=== PATIENT | female | born 1995 | race Caucasian/White ===

== ENCOUNTER 2018-06-06 10:52 | Emergency (ER) | payer OTHER ==
[2018-06-06 11:04] VITALS: BMI 32.9
[2018-06-06 11:20] LABS: HCG,QUALITATIVE URINE Positive
[2018-06-06 11:25] LABS: URINE APPEARANCE CLOUDY; URINE BILIRUBIN NEGATIVE (<2.0 mg/dL); URINE COLOR AMBER; URINE GLUCOSE (UA) NEGATIVE (NEGATIVE); URINE KETONE NEGATIVE (NEGATIVE); URINE LEUK ESTERASE NEGATIVE (NEGATIVE); URINE NITRITE NEGATIVE (NEGATIVE); URINE PROTEIN NEGATIVE (NEGATIVE); URINE UROBILINOGEN NEGATIVE mg/dL (0.2-1.0)
--- NOTE | 2018-06-06 11:43 | PDOC ---
History of Present Illness - General Chief Complaint: Pain, Acute Stated Complaint: 12 WKS VOMITING Time Seen by Provider: 06/06/18 10:56 History Source: Patient - History of Present Illness Initial Comments: 06/06/18 11:35 22F ([id number]) w/ no significant pmhx presents with a 3 day history of nausea and vomiting. Pt reports she has had 5-6 episodes of non-bloody, non-bilious vomiting since Sunday and is unable tolerate anything PO since then. She also admits to abdominal pain and diarrhea. Pt states she recently started taking vitamins on Sunday. She also follows up regularly with her OBGYN, last u/s done this past Sunday which was normal. Of note, she was seen at [facility] ED for vaginal bleeding after which she was found to have UTI and was given Macrobid. Pt is still currently taking the antibiotic. PMHx: 1 molar , 1 PSHx: Cyst removal on chest FHx: Mother- DM, HTN; Maternal grandfather- DM, HTN Social: Denies tobacco, alcohol, rec drug use; Works as a weight reduction specialist; Denies recent travel Past History - Past Medical History Allergies/Adverse Reactions: Allergies Allergy/AdvReac Type Severity Reaction Status Date / Time No Known Allergies Allergy Verified 06/06/18 11:11 Home Medications: Ambulatory Orders Acetaminophen [Acetaminophen ER] 650 mg PO Q6H #20 tablet.er 06/06/18 Metoclopramide HCl [Reglan] 10 mg PO Q4H PRN #20 tablet 06/06/18 Nitrofurantoin Macrocrystal [Nitrofurantoin] 100 mg PO BID 06/06/18 Pnv72/Iron,Gluc/Folic/Dss/Dha [Citranatal 90 Dha Combo Pack] 1 each PO DAILY 08/23 - Suicide/Smoking/Psychosocial Hx Smoking History: Never smoked Have you smoked in the past 12 months: No Information on smoking cessation initiated: No Hx Alcohol Use: No Drug/Substance Use Hx: No Review of Systems - Review of Systems Able to Perform ROS?: Yes Is the patient limited Kyrgyz proficient: No Constitutional: No: Chills, Fever, Weakness HEENTM: No: Recent change in vision Respiratory: No: Shortness of Breath Cardiac (ROS): No: Chest Pain ABD/GI: Yes: See HPI : Yes: See HPI Musculoskeletal: Yes: Back Pain Neurological: Yes: Headache. No: Dizziness *Physical Exam - Vital Signs Last Vital Signs Temp Pulse Resp BP Pulse Ox 97.6 F 80 18 116/73 100 06/06/18 10:58 06/06/18 10:58 06/06/18 10:58 06/06/18 10:58 06/06/18 10:58 - Physical Exam General Appearance: Yes: Appropriately Dressed HEENT: positive: EOMI, MICHAEL Neck: positive: Supple Respiratory/Chest: positive: Lungs Clear, Normal Breath Sounds Cardiovascular: positive: Regular Rhythm, Regular Rate, S1, S2 Vascular Pulses: Dorsalis-Pedis (R): 2+, Doralis-Pedis (L): 2+ Gastrointestinal/Abdominal: positive: Normal Bowel Sounds, Tender Extremity: positive: Normal Range of Motion Neurologic: positive: fermentation engineer II-XII NML intact, Fully Oriented, Alert, Motor Strength 5/5 ED Treatment Course - LABORATORY CBC & Chemistry Diagram: 06/06/18 11:30 06/06/18 11:30 - ADDITIONAL ORDERS Additional order review: Laboratory Results 06/06/18 11:13 Urine Color Nikia Urine Appearance Cloudy Urine pH 7.0 Ur Specific [place] 1.017 Urine Protein Negative Urine Glucose (UA) Negative Urine Ketones Negative Urine Blood Negative Urine Nitrite Negative Urine Bilirubin Negative Urine Urobilinogen Negative Ur Leukocyte Esterase Negative Urine HCG, Qual Positive Medical Decision Making - Medical Decision Making 06/06/18 12:09 Nausea/vomiting; likely 2/2 hyperemesis gravidarum -Pt currently 12 weeks ; will obtain CBC/CMP, b-HCG quant, u/a, urine cx -Will give Reglan 10 mg IVPB, Tylenol IV 1g IVPB, NS 1000mL IV bolus -Will also obtain u/s 06/06/18 13:09 - U/S showed single live IUP w/ estimated sonographic gestational age of 12 weeks and 6 days. heart activity documented. Deformity of the anterior myometrial wall likely due to a contraction. 06/06/18 13:37 -CBC/CMP wnl. Tolerating food now. Gave prescription for patient to take Tylenol for pain and Reglan for nausea. Advised pt to follow up with PCP and OBGYN. OK to d/c home. *DC/Admit/Observation/Transfer Diagnosis at time of Disposition: Nausea and vomiting - Discharge Dispostion Disposition: HOME Condition at time of disposition: Good Decision to Admit order: No - Prescriptions Prescriptions: Acetaminophen [Acetaminophen ER] 650 mg PO Q6H #20 tablet.er Metoclopramide HCl [Reglan] 10 mg PO Q4H PRN #20 tablet PRN Reason: Nausea And/Or Vomiting - Referrals Referrals: Boom Ramires MD [Primary Care Provider] - Karen Lopez DO [Staff Physician] - - Patient Instructions Additional Instructions: You were seen in the ED for complaints of nausea and vomiting. In the ED, your lab results were normal. A ultrasound was done that was normal. There is no acute need for hospitalization at this time. You are being discharged home. Please follow up with your OBGYN within 1 week. Please follow up with your primary care physician within 1 week. You are being given the following prescriptions: Please take Reglan 10 mg every 4 hours by mouth as needed for nausea. Please take Tylenol 650 mg every 6 hours by mouth as needed for pain. If you experience persistent nausea/vomiting, worsening abdominal pain, chest pain or shortness of breath, please proceed to your nearest emergency room immediately. - Post Discharge Activity Forms/Work/School Notes: Back to Work
[2018-06-06] MEDS ORDERED: METOCLOPRAMIDE HCL INJECTION 10 MG/2 ML VIAL ONE (11:45)
[2018-06-06] MEDS ORDERED: ACETAMINOPHEN INJECTION 100 ML IVPB ONE (11:46)
[2018-06-06] MEDS: ACETAMINOPHEN 1000 MG/100 ML VIAL (NON FORMULARY) IVPB ONE ×2 (11:47→12:24)
[2018-06-06] MEDS: METOCLOPRAMIDE HCL INJECTION 10 MG/2 ML VIAL IVPB ONE ×2 (11:47→12:24)
[2018-06-06] MEDS: SODIUM CHLORIDE 1,000 ML IV STA ×2 (11:47→12:24)
--- NOTE | 2018-06-06 11:48 | PDOC ---
Attending Attestation - HPI HPI: 06/06/18 12:06 The patient is a 22-year-old female , with a past medical history of 1 molar , 12 weeks , who presents to the ED with 3 days of nausea and vomiting. The patient reports having 5-6 episodes of nonbloody, nonbilious vomiting since Sunday 06/03. She developed generalized abdominal pain from the vomiting and has not been able to tolerate any solids or liquids. She also reports having loose stools. She denies any vaginal discharge or vaginal bleeding. The patient denies chest pain, shortness of breath, headache and dizziness. Denies fever, chills, and constipation. Denies dysuria, frequency, urgency and hematuria. Allergies: NKA Past Social History: None reported. Past Surgical History: None reported. PCP: Dr. Ramires - Physicial Exam PE: 06/06/18 12:06 GENERAL: Awake, alert, and fully oriented, in no acute distress HEAD: No signs of trauma EYES: PERRLA, EOMI, sclera anicteric, conjunctiva clear ENT: (+)Dry mucous membranes. Auricles normal inspection, hearing grossly normal , nares patent. NECK: Normal ROM, supple, JVD, or masses LUNGS: Breath sounds equal, clear to auscultation bilaterally. No wheezes, and no crackles HEART: Regular rate and rhythm, normal S1 and S2, no murmurs, rubs or gallops ABDOMEN: (+)Reports subjective abdominal tenderness but has no focal tenderness. Soft. No guarding, no rebound. No masses EXTREMITIES: Normal range of motion, no edema. No clubbing or cyanosis. No cords, erythema, or tenderness NEUROLOGICAL: Cranial nerves II through XII grossly intact. Normal speech, normal gait SKIN: Warm, Dry, normal turgor, no rashes or lesions noted. <Bettina Osborne - Last Filed: 06/06/18 12:06> - Resident Resident Name: Sandhya Laboy - ED Attending Attestation I have performed the following: I have examined & evaluated the patient, The case was reviewed & discussed with the resident, I agree w/resident's findings & plan, Exceptions are as noted - Medical Decision Making 06/06/18 11:44 A portion of this note was documented by scribe services under my direction. I have reviewed the details of the note, within reason, and agree with the documentation with the following case summary and management plan written by me. Patient treated in the ED. Nursing notes are reviewed and incorporated into the medical decision-making. Vital signs reviewed. Peripheral IV access obtained by the nurse, laboratory studies are drawn and sent, reviewed and interpreted by myself. Vital Signs Temp Pulse Resp BP Pulse Ox 97.6 F 80 18 116/73 100 06/06/18 10:58 06/06/18 10:58 06/06/18 10:58 06/06/18 10:58 06/06/18 10:58 22-year-old female patient , prior history of molar , approximately 12 weeks presents with nausea and vomiting for 3 days. Patient reported with her previous pregnancies that she was nauseous and vomiting as well. Since 3 days ago, patient has vomited multiple times with decreased appetite. Did report some mild loose stools but denies sick contacts or recent travels. No fevers or chills. Reported from the vomiting, she developed soreness around her abdomen that generalized. Denies vaginal bleeding. Patient was evaluated for first trimester vaginal bleeding 3 weeks ago where she was evaluated and treated. She does have a that confirms her with her OB, Dr. Lopez. I suspect the patient has hyperemesis gravidarum. We'll check labs including a urinalysis. The patient has no abdominal tenderness on my exam and I suspect that her abdominal wall is uncomfortable from vomiting. We'll obtain a [place] shunt to evaluate for the . We'll give labs and give IV fluids and antiemetics and reassess. If the patient's symptoms are better, the patient can be discharged home with Reglan. 06/06/18 13:21 Ultrasound demonstrated single live intrauterine with gestational age of 12 weeks 6 days with heart at 160 bpm. CBC, BMP 06/06/18 11:30 Urine Test Results Urine Color Nikia 06/06/18 11:13 Urine Appearance Cloudy 06/06/18 11:13 Urine pH 7.0 (5.0-8.0) 06/06/18 11:13 Ur Specific [place] 1.017 (1.010-1.035) 06/06/18 11:13 Urine Protein Negative (NEGATIVE) 06/06/18 11:13 Urine Glucose (UA) Negative (NEGATIVE) 06/06/18 11:13 Urine Ketones Negative (NEGATIVE) 06/06/18 11:13 Urine Blood Negative (NEGATIVE) 06/06/18 11:13 Urine Nitrite Negative (NEGATIVE) 06/06/18 11:13 Urine Bilirubin Negative (<2.0 mg/dL) 06/06/18 11:13 Ur Leukocyte Esterase Negative (NEGATIVE) 06/06/18 11:13 UA negative. If chemistries are unremarkble, and the patient feels better, will discharge her with reglan and have her follow up with assistant merchandiser. <Song Diaz - Last Filed: 06/06/18 13:22>
[2018-06-06 12:42] LABS: HEMATOCRIT 38.3 % (32.4-45.2); HEMOGLOBIN 12.8 GM/dL (10.7-15.3); MCH 30.2 pg (25.7-33.7); MCHC 33.5 g/dl (32.0-36.0); MEAN CELL VOLUME 90.1 fl (80-96); MEAN PLT VOLUME 7.6 fl (7.5-11.1); PLATELET COUNT 301 K/MM3 (134-434); RBC 4.25 M/mm3 (3.60-5.2); RDW 13.2 % (11.6-15.6); WHITE BLOOD COUNT 9.6 K/mm3 (4.0-10.0)
[2018-06-06 13:23] LABS: ALBUMIN 3.5 g/dl (3.4-5.0); ALK PHOS 49 U/L (45-117); ANION GAP 10 MMOL/L (8-16); BILIRUBIN,TOTAL 0.3 mg/dL (0.2-1); BLOOD UREA NITROGEN 6 mg/dL (7-18); CALCIUM 8.8 mg/dL (8.5-10.1); CHLORIDE 105 mmol/L (98-107); CO2 23 mmol/L (21-32); CREATININE 0.4 mg/dL (0.55-1.3); GLUCOSE,RANDOM 79 mg/dL (74-106); MAGNESIUM 2.2 mg/dL (1.8-2.4); PHOSPHOROUS 4.3 mg/dL (2.5-4.9); POTASSIUM 4.1 mmol/L (3.5-5.1); SGOT/AST 17 U/L (15-37); SGPT/ALT 32 U/L (13-61); SODIUM 137 mmol/L (136-145)
[2018-06-06 13:58] VITALS: BP 111/67; PULSE 74; TEMP 97.9
== END 2018-06-06 13:55 | disposition home or self-care (01) ==
LOC: JER 10:52
PROC: 3E0337Z Introduction of Electrolytic and Water Balance Substance into Peripheral Vein, Percutaneous Approach (ICD-10-PCS; principal; 2018-06-06)
PROC: 3E033NZ Introduction of Analgesics, Hypnotics, Sedatives into Peripheral Vein, Percutaneous Approach (ICD-10-PCS; 2018-06-06)
PROC: 3E033GC Introduction of Other Therapeutic Substance into Peripheral Vein, Percutaneous Approach (ICD-10-PCS; 2018-06-06)
DX: O26.891 Other specified pregnancy related conditions, first trimester (principal); O21.0 Mild hyperemesis gravidarum; Z3A.12 12 weeks gestation of pregnancy
CPT/HCPCS: 36415; 76801-TC; 80053; 81003; 83735; 84100; 84702; 84703; 85027; 87086; 99283-25; J0131; J7030

== ENCOUNTER 2018-09-02 21:32 | Emergency (ER) | payer OTHER ==
[2018-09-02 21:38] VITALS: BMI 37.5
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
[2018-09-02 22:24] LABS: URINE APPEARANCE SLCLOUDY; URINE BILIRUBIN NEGATIVE (<2.0 mg/dL); URINE COLOR YELLOW; URINE GLUCOSE (UA) NEGATIVE (NEGATIVE); URINE KETONE NEGATIVE (NEGATIVE); URINE LEUK ESTERASE NEGATIVE (NEGATIVE); URINE NITRITE NEGATIVE (NEGATIVE); URINE PROTEIN NEGATIVE (NEGATIVE); URINE UROBILINOGEN NEGATIVE mg/dL (0.2-1.0)
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
[2018-09-03] MEDS ORDERED: DEXTROSE 5%-LACTATED RINGERS 1,000 ML IV ONE
[2018-09-03 00:33] VITALS: BP 113/60; PULSE 84; TEMP 97.8
== END 2018-09-03 03:05 | disposition home or self-care (01) ==
LOC: JER 21:32
PROC: 3E0337Z Introduction of Electrolytic and Water Balance Substance into Peripheral Vein, Percutaneous Approach (ICD-10-PCS; principal; 2018-09-02)
DX: O26.892 Other specified pregnancy related conditions, second trimester (principal); R10.30 Lower abdominal pain, unspecified; M54.5 Low back pain; Z3A.25 25 weeks gestation of pregnancy; V43.52XA Car driver injured in collision with other type car in traffic accident, initial encounter; Y92.488 Other paved roadways as the place of occurrence of the external cause; Y93.89 Activity, other specified; Y99.8 Other external cause status
CPT/HCPCS: 76700-TC; 76801-TC; 76830-TC; 81003; 99282-25

== ENCOUNTER 2018-12-25 09:33 | Inpatient (IN) | payer OTHER | END 2018-12-28 13:00 | disposition home or self-care (01) | LOC: JDEL 09:33 → JLDR 09:33 → J3W 22:15 ==